=== PATIENT | male | born 1955 | race Caucasian/White ===

== ENCOUNTER 2016-09-09 17:30 | Observation (INO) | payer BC ==
--- NOTE | ~2016-09-09 | DS ---
Discharge Summary [facility] [address] [facility] [place]. [address] NAME: SIMÓN WELCH : 53 STATUS : ADM IN [facility]#: [id number] AGE: 61 ADM/REG DATE : 09/09/16 MR#: [id number] REPORT SERV DATE: 09/10/16 DICTATED BY: HARRIET BRUNSON DATE: 09/10/16 REPORT STATUS : Draft TRANSCRIBED BY: MODL DATE: 09/10/16 ADMISSION DATE: 09/09/2016 DISCHARGE DATE: 09/10/2016 DISCHARGE DIAGNOSES: 1. Dehydration due to #3, resolved. 2. Dysphagia due to #3, pain improved. 3. 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 4. Diabetes mellitus type 2, stable. 5. Hypertension, stable. 6. History of hyponatremia. 7. Malnutrition. IMAGING: Chest x-ray, September 09, 2016; impression, no acute cardiopulmonary abnormality identified. LABORATORY DATA: Sodium 136, potassium 3.8, chloride 99, CO2 29, BUN of 31 and creatinine is 1.02. Glucose is 181. Calcium at 8.2. COURSE OF HOSPITAL STAY: Please refer to history and physical dictated on September 09, 2016 by nurse practitioner, Harriet Brunson, for complete admission details. This patient is a 61-year-old male, who presented as a direct admission. He had been evaluated by his primary care who had concerns for dehydration. Due to dehydration, due to right tonsillar squamous-cell carcinoma, just completed radiation and chemotherapy. The patient does present with a PEG tube, but continues to have difficulty swallowing. He does state that his pain has not been controlled, currently taken hydrocodone. The patient was admitted to the hospital for IV fluids and monitoring. 1. Dehydration due to #3. This has been resolved. The patient was admitted to the hospital, IV fluids were obtained, as well as monitoring lab work. 2. Dysphagia due to #3. The patient has had complaints of dysphagia, ongoing, does state that he has taken hydrocodone at home, but does state that this is not controlling his pain. The patient was changed to oral morphine liquid, which does seem to control his pain some better. Oral care was provided, as well as viscous lidocaine. The patient does state that he is having better pain control at this time. 3. 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 The patient has completed radiation and chemotherapy. He will continue to follow Dr. Prado, outpatient. 4. Diabetes mellitus type 2. The patient will continue home medications upon discharge. His blood sugars remained stable during his stay. 5. Hypertension. The patient states that he is no longer taking home medications. I have advised the patient to continue to monitor his blood pressure and review readings with his primary care. He did state understanding. 6. History of hyponatremia. The patient does report history of hyponatremia. This was monitored during his stay and sodium is 136 at this time and stable. 7. Moderate malnutrition. The patient does report weight loss since June. PEG tube Discharge Summary [address] [address] NAME: SIMÓN WELCH : 53 STATUS : ADM IN [facility]#: [id number] AGE: 61 ADM/REG DATE : 09/09/16 MR#: [id number] REPORT SERV DATE: 09/10/16 DICTATED BY: HARRIET BRUNSON DATE: 09/10/16 REPORT STATUS : Draft TRANSCRIBED BY: BRANDYN DATE: 09/10/16 had been placed. He is tolerating his tube feeds. He does state occasional nausea, but this is unable to control. The patient does state understanding regarding tube feedings. He states that his is helping him with them and they have declined home health. 8. This patient is being discharged home in hemodynamically stable condition and again the patient and have declined on Home Health needs. He will follow up with Dr. Rolando Prado, his regular scheduled appointment. DISCHARGE MEDICATIONS: 1. Hyzaar 100/12.5 mg one p.o. daily. 2. Pravastatin 40 mg one p.o. at bedtime. 3. Testosterone 100 mg/mL IM, Wednesday and Wednesday. 4. DHEA one each p.o. daily. 5. Metformin 1000 mg p.o. twice daily. 6. Morphine 10 mg/5 mL, 10-20 mg p.o. every four hours p.r.n. for pain. 7. Viscous lidocaine 2%, 10 mL p.o. t.i.d., p.r.n. pain. This discharge took less than 30 minutes. [facility]/MODL Harriet Brunson NP / [id number] CC: MD Bridger Wang D.O.
--- NOTE | ~2016-09-09 | HP ---
History And Physical [address] [place]. [address] NAME: SIMÓN WELCH : 53 STATUS : ADM IN [facility]#: [id number] AGE: 61 ADM/REG DATE : 09/09/16 MR#: [id number] REPORT SERV DATE: 09/09/16 DICTATED BY: HARRIET BRUNSON DATE: 09/09/16 REPORT STATUS : Draft TRANSCRIBED BY: MODFaby DATE: 09/09/16 DATE OF ADMISSION: 09/09/2016 CHIEF COMPLAINT: Difficulty swallowing, dehydration. HISTORY OF PRESENT ILLNESS: This patient is a 61-year-old male, who presents as a direct admission with a history of right tonsillar squamous cell carcinoma has recently completed radiation chemotherapy under the care of Dr. Rolando Prado. The patient has complaints of nausea, ongoing painful swallowing. Has recently had PEG tube placed, but has had increase in throat pain since completing radiation. The patient does deny any fever or chills. Does state that he has had occasional nausea. He is able to occasionally have a productive cough. Feels it is from the back of his throat. Does state that it is thick, white to green in color. Does deny any shortness of breath or chest pain. Denies any abdominal pain. REVIEW OF SYSTEMS: Otherwise, negative review of system what is listed above. PAST MEDICAL HISTORY: 1. Right tonsillar squamous cell carcinoma, completed radiation on 08/28/2016, completed chemotherapy on 08/24/2016. 2. Diabetes mellitus type 2. 3. Hypertension. PAST SURGICAL HISTORY: 1. Arm reconstruction 1971. 2. Urinary tract reconstruction 2002. 3. Right tonsillectomy in April 2016. 4. PEG tube placement. 5. Port-A-Cath placement and then removal. SOCIAL HISTORY: The patient is 33 years. Denies smoking. Denies alcohol. Denies illicit drug use. ALLERGIES: NO KNOWN DRUG ALLERGIES. PHYSICAL EXAMINATION: VITAL SIGNS: O2 saturations 98% on room air, temperature is 98.5, pulse is 97, respirations 18, blood pressure is 154/95. GENERAL: This patient is alert and oriented, in no acute distress. NEURO: The patient is alert and oriented. LUNGS: Bilaterally diminished in bases. No wheezes, rales, or rhonchi. CARDIOVASCULAR: The patient is tachycardic. No murmurs, rubs, or gallops. ABDOMEN: Soft, nontender to touch. Bowel sounds are active. Last bowel movement, 09/06/2016. EXTREMITIES: No edema. No cyanosis. History And Physical [address] [place] [address] NAME: SIMÓN WELCH : 53 STATUS : ADM IN [facility]#: [id number] AGE: 61 ADM/REG DATE : 09/09/16 MR#: [id number] REPORT SERV DATE: 09/09/16 DICTATED BY: HARRIET BRUNSON DATE: 09/09/16 REPORT STATUS : Draft TRANSCRIBED BY: BRANDYN DATE: 09/09/16 LABORATORY DATA: To be obtained. ASSESSMENT AND PLAN: 1. Dehydration due to right tonsillar squamous cell carcinoma. The patient has had complaints of decreased oral intake due to post radiation pain. The patient will be provided IV fluids. We will check laboratory data. Continue PEG tube feedings. 2. Dysphagia due to right tonsillar squamous cell carcinoma. The patient has ongoing complaints of oral pain. We will provide oral care, p.r.n. narcotics as well as MD Argueta with viscous lidocaine for mouth pain. 3. Right tonsillar squamous cell carcinoma. Recently completed chemotherapy and radiation. We will consult Oncology to see the patient during his stay. 4. Diabetes mellitus type 2. The patient states that he currently takes metformin twice daily. We will place the patient on a sliding scale insulin and continue to monitor patient. 5. Hypertension. The patient does report history of hypertension, but is no longer taking blood pressure medication since June 2016. We will continue to monitor. Add hydralazine p.r.n. as needed. 6. History of hyponatremia. The patient does report history of hyponatremia. We will continue to monitor his lab work. 7. Malnutrition due to right tonsillar squamous cell carcinoma. The patient has recently had a PEG tube in place. We will continue PEG tube feedings and monitor the patient. 8. The patient is a full code. The patient will be followed by Dr. Sam Patel, during his hospital stay. [facility]/BRANDYN Harriet Brunson NP / [id number] CC: MD Bridger Wang D.O.
[~2016-09-09 17:30] MED LIST: ASAB PO; COQ-1010 MG OR; DEPO-TESTOS100 MG/ML IM; DHE1 PO; FEMARA PO; FISH-EPA1000 MG PO; GLUCOPHAGE1000 MG PO; GLUCPH8 PO; HYZAAR1 TAB PO; MAGOX4 PO; MAX D3 PO; METANX PO; PRAVAC PO; PRAVACHOL40 MG PO; VITAMIN D31000 UNIT PO
[2016-09-09 19:12] LABS: MEAN CORPUSCULAR HEMOGLOB 29.1 pg (26.0-34.0); MEAN CORPUSCULAR VOLUME 91.1 fL (80-100); MEAN PLATELET VOLUME 9.4 fL (9.2-13.0); PLATELET COUNT 227 10/3/uL (150-400)
[2016-09-09 19:28] LABS: A/G RATIO 0.8 (0.7-1.9); ALBUMIN 2.9 G/DL (3.5-5.0); ALKALINE PHOSPHATASE 69 U/L (45-117); CALCIUM, SERUM 8.8 MG/DL (8.5-10.4); CHLORIDE, SERUM 96 MMOL/L (96-112); CO2 (CARBON DIOXIDE) 29 MMOL/L (24-34); CREATININE 1.06 MG/DL (0.70-1.30); GFR AFRICAN AMERICAN 87 ML/MIN (>=60); GFR NON AFRICAN AMERICAN 75 ML/MIN (>=60); GLOBULIN 3.5 G/DL (2.5-4.1); GLUCOSE, SERUM 169 MG/DL (60-99); SGOT(AST) 17 U/L (5-40); SGPT(ALT) 37 U/L (5-65); SODIUM, SERUM 135 MMOL/L (135-148); TOTAL BILIRUBIN 0.4 MG/DL (0-1.2); TOTAL PROTEIN 6.4 G/DL (6.0-8.5)
[2016-09-09 19:29] LABS: BUN (BLOOD UREA NITROGEN) 35 MG/DL (6-23); HEMATOCRIT 29.7 % (40.0-51.0); HEMOGLOBIN 9.5 g/dL (13.6-17.8); MANUAL DIFF YES %; RBC DISTRIBUTION WIDTH 16.3 % (12.0-16.0); RED CELL COUNT 3.26 10/6/uL (4.7-6.1)
[2016-09-09 22:14] LABS: BAND NEUTROPHILS 4 %; BASOPHILS 1 %; BASOPHILS ABSOLUTE (CALC) 0.05 10/3/uL (0.0-0.16); LYMPHOCYTES 17 %; LYMPHOCYTES ABSOLUTE (CALC) 0.85 10/3/uL (0.67-4.30); MONOCYTES 7 %; MONOCYTES ABSOLUTE (CALC) 0.35 10/3/uL (0.21-1.20); NEUTROPHILS ABSOLUTE (CALC) 3.75 10/3/uL (2.02-8.40); PLATELET ESTIMATE ADQ (ADEQUATE); SEGMENTED NEUTROPHIL (0) 71 %; TOTAL NUCLEATED CELLS 100
[2016-09-09 23:31] LABS: ASCORBIC ACID (UR NOT ORDER) 40 (NEG); BILIRUBIN, URINE NEGATIVE (NEG); KETONE, URINE TRACE MG/DL (NEG); LEUKOCYTE ESTERASE(NOT OR LARGE (NEG); WBC (NOT ORDERED) (RFLEX) 51 (0-5)
[2016-09-10 04:42] LABS: CALCIUM, SERUM 8.2 MG/DL (8.5-10.4); CHLORIDE, SERUM 99 MMOL/L (96-112); CO2 (CARBON DIOXIDE) 29 MMOL/L (24-34); CREATININE 1.02 MG/DL (0.70-1.30); GFR AFRICAN AMERICAN 91 ML/MIN (>=60); GFR NON AFRICAN AMERICAN 78 ML/MIN (>=60); GLUCOSE, SERUM 181 MG/DL (60-99); POTASSIUM, SERUM 3.8 MMOL/L (3.5-5.3); SODIUM, SERUM 136 MMOL/L (135-148)
[2016-09-10 04:43] LABS: BUN (BLOOD UREA NITROGEN) 31 MG/DL (6-23)
[2016-09-10] MEDS ORDERED: MORPHINE S20 MG/5 ML PO (10:38)
[2016-09-10] MEDS ORDERED: VISCOUS LIDOCAINE PO (10:43)
[2017-02-22] MEDS ORDERED: TRENTAL400 PO (11:40)
== END 2016-09-10 13:35 | disposition home or self-care (01) ==
LOC: 4EA 17:30
PROVIDERS: Internal Medicine
DX: E86.0 Dehydration (principal); C09.9 Malignant neoplasm of tonsil, unspecified; E11.9 Type 2 diabetes mellitus without complications; I10 Essential (primary) hypertension
CPT/HCPCS: 71010; 80048; 80053; 81001; 82962; 85025; 87077; 87086; 87186; 96372; A9270-GY; G0378